=== PATIENT | female | born 1950 | race Two or more races ===

== ENCOUNTER 2020-01-09 13:13 | Emergency (ER) | payer MEDICARE, OTHER ==
[~2020-01-09] VITALS: Ht 160 cm; Wt 56.7 kg
--- NOTE | 2020-01-09 13:30 | NUR ---
patient came in to the ER c/o ptosis to left eye with dilated pupil x 1 week. On room air, breathing evenly and unlabored. Ambulatory with steady gait. connected to the monitor and pulse ox. able to swallow water with ni discomfort or cough. will continue to monitor accordingly.
[2020-01-09 14:00] LABS: BASOPHILS % (AUTO) 0.5 % (0.0-2.0); EOSINOPHILS % (AUTO) 0.4 % (0.0-6.0); HEMATOCRIT 43 % (33-45); HEMOGLOBIN 14.5 g/dL (11.5-14.8); LYMPHOCYTES # (AUTO) 2.2 /CMM (0.8-4.8); LYMPHOCYTES % (AUTO) 25.1 % (20.0-44.0); MEAN CORPUSCULAR HGB CONC 34 g/dl (31.0-36.0); MEAN CORPUSCULAR VOLUME 97 fL (82-100); MONOCYTES # (AUTO) 0.7 /CMM (0.1-1.30); MONOCYTES % (AUTO) 8.1 % (2.0-12.0); NEUTROPHILS # (AUTO) 5.8 /CMM (1.8-8.9); NEUTROPHILS % (AUTO) 65.9 % (43.0-81.0); PLATELET COUNT (AUTO) 251 /CMM (150-450); RED BLOOD CELL COUNT(AUTO) 4.47 MIL/uL (4.0-5.2); WHITE BLOOD COUNT (AUTO) 8.8 K/uL (4.3-11.0)
[2020-01-09 14:10] LABS: CALCIUM, SERUM 8.7 mg/dL (8.5-10.1); CARBON DIOXIDE 26 mmol/L (21-32); CHLORIDE 103 mmol/L (98-107); CREATININE 0.7 mg/dL (0.6-1.3); GLUCOSE 99 mg/dL (74-106); POTASSIUM 3.9 mmol/L (3.5-5.1); SODIUM SERUM 136 mmol/L (136-145); UREA NITROGEN, BLOOD 10 mg/dL (7-18)
[2020-01-09 14:31] LABS: CHOLESTEROL 174 mg/dL (<200); HDL CHOLESTEROL 81 mg/dL (40-60); LDL 83 mg/dL (0-99); TRIGLYCERIDES 105 mg/dL (30-150)
--- NOTE | 2020-01-09 17:22 | NUR ---
[facility] ALVA TRANSFER: PT GOING TO ROOM 313 RN FOR REPORT [id number] PAREDES PRN ALS CODE 3 ETA 1747
[2020-01-09 17:28] VITALS: BP 140/71
--- NOTE | 2020-01-09 17:52 | NUR ---
patient picked up by ALS via gurcally accompanied by daughter in no distress going to [facility]. Octavia VARELA made aware.
== END 2020-01-09 17:51 | disposition short-term general hospital (02) ==
LOC: ER 13:17
DX: I67.1 Cerebral aneurysm, nonruptured (principal); R94.31 Abnormal electrocardiogram [ECG] [EKG]; Z98.890 Other specified postprocedural states; Z88.0 Allergy status to penicillin
CPT/HCPCS: 36415; 70450-TC; 70496-TC; 71045-TC; 80048-TC; 80061-TC; 82962-TC; 84484-TC; 85025-TC; 85730-TC